=== PATIENT | female | born 1950 | race Caucasian/White ===

== ENCOUNTER → 2017-03-12 | Outpatient (CLI) | payer MEDICARE, OTHER | LOC: US 03-09 10:15 | DX: E83.119 Hemochromatosis, unspecified (principal); K76.89 Other specified diseases of liver | CPT/HCPCS: 76700 ==

== ENCOUNTER → 2021-09-24 | Outpatient (CLI) | payer MEDICARE ==
[~2021-09-24] MED LIST: BACTROBAN OINT22 GM EXT; IBUPROFEN600 MG PO
[2021-09-24 10:08] LABS: HEMOGLOBIN 16.7 gm/dl (12.3-15.3); RED BLOOD COUNT 5.44 M/UL (4.00-5.10); WHITE BLOOD COUNT 9.8 K/UL (4.5-11.0)
[2021-09-25 09:11] LABS: A/G RATIO 1.8 (1.2-2.2); ALKALINE PHOSPHATASE, S 57 IU/L (44-121); ALT (SGPT) 12 IU/L (0-32); AST (SGOT) 18 IU/L (0-40); BILIRUBIN, TOTAL 0.4 mg/dL (0.0-1.2); BUN 12 mg/dL (8-27); BUN/CREATININE RATIO 16 (12-28); CALCIUM, SERUM 9.3 mg/dL (8.7-10.3); CARBON DIOXIDE, TOTAL 25 mmol/L (20-29); CHLORIDE, SERUM 104 mmol/L (96-106); CREATININE, SERUM 0.77 mg/dL (0.57-1.00); EGFR IF AFRICN AM 91 (>59); EGFR IF NONAFRICN AM 79 (>59); GLOBULIN, TOTAL 2.4 g/dL (1.5-4.5); GLUCOSE, SERUM 103 mg/dL (65-99); POTASSIUM, SERUM 4.3 mmol/L (3.5-5.2); PROTEIN, TOTAL, SERUM 6.7 g/dL (6.0-8.5); SODIUM, SERUM 142 mmol/L (134-144)
[2021-09-25 10:11] LABS: CHOLESTEROL, TOTAL 185 mg/dL (100-199); HDL CHOLESTEROL 78 mg/dL (>39); LDL CHOLESTEROL CALC 86 mg/dL (0-99); LDL/HDL RATIO 1.1 ratio (0.0-3.2); T. CHOL/HDL RATIO 2.4 ratio (0.0-4.4); TRIGLYCERIDES 120 mg/dL (0-149)
[2021-09-25 11:11] LABS: FOLATE (FOLIC ACID), SERUM 14.4 ng/mL (>3.0)
[2021-09-26 00:07] LABS: VITAMIN D, 25-HYDROXY 11.9 ng/mL (30.0-100.0)
== END ==
LOC: US 09:17
PROVIDERS: Internal Medicine
DX: Z13.1 Encounter for screening for diabetes mellitus (principal); Z13.220 Encounter for screening for lipoid disorders; D51.8 Other vitamin B12 deficiency anemias; E55.9 Vitamin D deficiency, unspecified; R63.4 Abnormal weight loss; R09.89 Other specified symptoms and signs involving the circulatory and respiratory systems; Z79.899 Other long term (current) drug therapy
CPT/HCPCS: 36415; 76700; 80053; 80061; 82607; 82746; 84439; 84443; 85025; 93880

== ENCOUNTER → 2021-12-31 | Outpatient (CLI) | payer MEDICARE | LOC: KOH-I 14:43 | DX: F17.210 Nicotine dependence, cigarettes, uncomplicated (principal); R91.8 Other nonspecific abnormal finding of lung field | CPT/HCPCS: 71271 ==

== ENCOUNTER → 2022-01-02 | Outpatient (CLI) | payer MEDICARE | LOC: HEART 5 10-01 08:30 → EXRD 10-01 10:15 → HEART 5 10-09 09:00 → EXRD 10-09 10:00 → HEART 5 09:30 | DX: E83.119 Hemochromatosis, unspecified (principal) | CPT/HCPCS: 93925; 93970 ==

== ENCOUNTER → 2022-04-28 | Outpatient (CLI) | payer MEDICARE | LOC: KOH-I 04-14 09:00 | DX: R91.1 Solitary pulmonary nodule (principal) | CPT/HCPCS: 71250 ==

== ENCOUNTER → 2022-06-07 | Outpatient (CLI) | payer MEDICARE | LOC: MRI 10:00 | DX: K83.8 Other specified diseases of biliary tract (principal) | CPT/HCPCS: 74181 ==